=== PATIENT | female | born 1950 | race Caucasian/White ===

== ENCOUNTER → 2016-08-10 | Day surgery (SDC) | payer MEDICAID ==
[~2016-08-10] MED LIST: BUPIVACAINE 0.25% 30 ML SDV ONE; BUPIVACAINE 0.5% 10 ML SDV ONE; DEPO METHYLPREDNISOLONE 40 MG/ML SDV ONE; DEPO METHYLPREDNISOLONE 80 MG/ML SDV ONE
--- NOTE | 2016-08-10 11:42 | CT ---
CT-guided right sacroiliac joint cortical steroid injection History: Chronic SI joint pain. Informed consent: Informed written and oral consent was obtained. Crosscutting measure #226, nonsmoker. Technique: Patient was placed in the prone position. Localization grid was placed posteriorly. 2.5-m m helical images were obtained of the pelvis without contrast. Radiation dose reduction technique was utilized. Images were evaluated showing minimal early degenerative change in the right iliac joint. Localization was made of the posteroinferior margin of the right sacroiliac joint and skin omar was m jay. After the usual sterile preparation and local anesthesia with lidocaine 1%, a 22-gauge spinal ne edle was directed toward the right sacroiliac joint using CT guidance. The needle was repositioned se veral times to place the needle within the right sacroiliac joint. Confirmation was made of needle ti p within the right sacroiliac joint. Subsequently, 1 mL of Depo-Medrol (40 mg) and 1 mL of preservati ve-free Bupivacaine was placed within the right sacroiliac joint. The needle was removed and the carmel ent tolerated the procedure well. The patient was given the usual postprocedural care and instruction s. Impression: Successful uneventful CT-guided right sacroiliac joint corticosteroid injection.
== END | disposition home or self-care (01) ==
LOC: FIMAGING 08:27
PROVIDERS: ATTEND Physician Assistant
PROC: 3E0U33Z Introduction of Anti-inflammatory into Joints, Percutaneous Approach (ICD-10-PCS; principal; 2016-08-10)
PROC: 3E0U3BZ Introduction of Anesthetic Agent into Joints, Percutaneous Approach (ICD-10-PCS; principal; 2016-08-10)
DX: M53.3 Sacrococcygeal disorders, not elsewhere classified (principal); G89.29 Other chronic pain
CPT/HCPCS: J1020